=== PATIENT | female | born 1980 | race African-American/Black ===

== ENCOUNTER → 2017-03-09 | Outpatient (CLI) | payer OTHER ==
[2017-03-09 16:30] LABS: FREE T3 4.12 pg/mL (2.77-5.27)
[2017-03-09 16:43] LABS: THYROID STIMULATING HORMONE 1.63 uIU/mL (0.47-4.68)
[2017-03-09 17:20] LABS: FOLATE > 20.00 ng/mL (>2.76)
== END ==
LOC: OD 14:33
PROVIDERS: ATTEND Specialist
DX: G31.84 Mild cognitive impairment of uncertain or unknown etiology (principal)
CPT/HCPCS: 36415; 82607; 82746; 83036; 84439; 84443; 84481; 86038; 86592

== ENCOUNTER → 2017-03-10 | Outpatient (CLI) | payer OTHER | LOC: RAD 18:48 | PROVIDERS: ATTEND Specialist | DX: G31.84 Mild cognitive impairment of uncertain or unknown etiology (principal) | CPT/HCPCS: 70553; 72156; A9577 ==

== ENCOUNTER 2017-06-07 08:03 | Day surgery (SDC) | payer OTHER ==
[2017-06-07 08:36] LABS: PARTIAL THROMBOPLASTIN TIME 28.3 SEC (23.5-35.8); PROTHROMBIN TIME 11.7 SEC (11.4-15.4)
--- NOTE | 2017-06-07 11:03 | RADIOLOGY REPORT (SQ) ---
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 TECHNIQUE: Fluoroscopic guided lumbar puncture. LIMITATIONS: None. PROCEDURE: After written consent and assessment were obtained, the patient was brought into the fluo roscopy room and placed prone on the table. The patient's lower back was prepped in a sterile fashio n and an entry site was selected under live fluoroscopic guidance. The entry site was anesthetized wi th 4.5 mL of 1% lidocaine. A 20 gauge spinal needle was advanced through the skin and into the thecal sac at the left paracentral L2-3 level. After approximately 9 ml was drained, the needle was removed and a sterile bandage was placed of the site. Specimens were sent to the lab for testing. A fluoro scopic spot image was saved to PACS confirming level access. FINDINGS: Clear CSF Opening pressure 14 cm of water. Specimens of cerebrospinal fluid were sent the lab for testing. IMPRESSION: Lumbar puncture under fluoroscopy. No immediate complication. COMMENT: Patient medication list reviewed: Yes- Quality ID# [id number]:Eligible professional attests to doc umenting in the medical record they obtained, updated, or reviewed the patient's current medications. . Quality ID 145: Final reports for procedures using fluoroscopy that document radiation exposure loreto alessandro, or exposure time and number of fluorographic images (if radiation exposure indices are not avail able) TECHNICAL DOCUMENTATION: JOB ID: [id number] [employer]- All Rights Reserved
[2017-06-07 12:08] LABS: GLUCOSE,CSF 61 mg/dL (40-70)
[2017-06-07 13:01] VITALS: BP 109/64
[2017-06-08 08:22] LABS: VITAMIN D 25-HYDROXY 16.4 ng/mL (30.0-100.0)
[2017-06-08 14:03] LABS: ANTI-SS-B AB SJOGREN'S 0.6 AI (0.0-0.9)
[2017-06-08 16:39] LABS: ALBUMIN 3 3.7 g/dL (2.9-4.4); ALPHA-1-GLOBULIN 0.2 g/dL (0.0-0.4); ALPHA-2-GLOBULIN 3 0.6 g/dL (0.4-1.0); BETA GLOBULIN 1.1 g/dL (0.7-1.3); GLOBULIN TTL 3.2 g/dL (2.2-3.9); IMMUNOGLOBULIN A 154 mg/dL (87-352); IMMUNOGLOBULIN G 1407 mg/dL (700-1600); IMMUNOGLOBULIN M 38 mg/dL (26-217); MONOCLONAL-SPIKE Not Observed g/dL (Not Observed); PROTEIN TOTAL SERUM 6.9 g/dL (6.0-8.5)
[2017-06-12 19:36] LABS: LYME P18 AB IGG CSF Present (.); LYME P23 AB IGG CSF Absent (.); LYME P23 AB IGM CSF Absent (.); LYME P28 AB IGG CSF Present (.); LYME P30 AB IGG CSF Present (.); LYME P39 AB IGG CSF Absent (.); LYME P39 AB IGM CSF Absent (.); LYME P41 AB IGG CSF Absent (.); LYME P41 AB IGM CSF Absent (.); LYME P45 AB IGG CSF Present (.); LYME P58 AB IGG CSF Present (.); LYME P66 AB IGG CSF Present (.); LYME P93 AB IGG CSF Present (.)
[2017-06-13 07:08] LABS: LYME IGG WB CSF INTERP Negative (.); LYME IGM WB CSF INTERP Negative (.)
== END 2017-06-07 12:50 | disposition home or self-care (01) ==
LOC: RAD 08:03
PROVIDERS: ATTEND Psychiatry & Neurology Neurology
PROC: 009U3ZX Drainage of Spinal Canal, Percutaneous Approach, Diagnostic (ICD-10-PCS; principal; 2017-06-07)
DX: G37.9 Demyelinating disease of central nervous system, unspecified (principal); R51 Headache; R42 Dizziness and giddiness; Z88.0 Allergy status to penicillin
CPT/HCPCS: 36415; 62270; 77003; 82306; 82945; 83916; 84157; 85610; 85730; 86235; 86320; 86617

== ENCOUNTER 2017-06-09 01:53 | Emergency (ER) | payer OTHER ==
--- NOTE | 2017-06-09 02:49 | ER Document Report ---
ED Headache <STORMY HUMPHREY - Last Filed: 06/09/17 03:52> - General Mode of Arrival: Ambulatory Information source: Patient, Relative - spouse TRAVEL OUTSIDE OF THE [place] IN LAST 30 DAYS: No - HPI Similar symptoms previously: No Recently seen / treated by doctor: Yes <MATTEO PÉREZ - Last Filed: 06/09/17 04:54> - General Chief Complaint: Headache Stated Complaint: PRESSURE ON HEAD Time Seen by Provider: 06/09/17 02:44 - HPI Notes: Patient is a 36 year old female presenting to the emergency department for headache. Patient describes her headache as pressure and states it is exacerbated when she is in suspine position and has been progressing. Patient has had multiple MRIs completed in the past. Patient denies any headache pain but only pressure at the back of her head. Patient had a lumbar puncture on Monday. Patient also has numbness in the back of her left leg. Patient states she cannot take any caffeine because it induces her migraines. (MATTEO PÉREZ) - Related Data Allergies/Adverse Reactions: prochlorperazine edisylate [From Compazine] Allergy (Verified 06/09/17 03:06) can't open mouth/eyes fixated prochlorperazine maleate [From Compazine] Allergy (Verified 06/09/17 03:06) can't open mouth/eyes fixated promethazine HCl [From Phenergan] Allergy (Verified 06/09/17 03:06) can't open mouth/ eyes won't move Past Medical History - General Information source: Patient - Social History Smoking Status: Never Smoker Cigarette use (# per day): No Chew tobacco use (# tins/day): No Smoking Education Provided: No Frequency of alcohol use: None Drug Abuse: None Family History: DM, Hypertension Patient has suicidal ideation: No Patient has homicidal ideation: No Neurological Medical History: Reports: Hx Migraine GI Medical History: Reports: Hx Gastroesophageal Reflux Disease Musculoskeltal Medical History: Reports Hx Arthritis Surgical Hx: Negative - Immunizations Hx Diphtheria, Pertussis, Tetanus Vaccination: No <MATTEO PÉREZ - Last Filed: 06/09/17 04:54> Review of Systems - Review of Systems Constitutional: No symptoms reported EENT: No symptoms reported Cardiovascular: No symptoms reported Respiratory: No symptoms reported Gastrointestinal: No symptoms reported Genitourinary: No symptoms reported Female Genitourinary: No symptoms reported Musculoskeletal: No symptoms reported Skin: No symptoms reported Hematologic/Lymphatic: No symptoms reported Neurological/Psychological: See HPI, Headaches -: Yes All other systems reviewed and negative <MATTEO PÉREZ - Last Filed: 06/09/17 04:54> Physical Exam <STORMY HUMPHREY - Last Filed: 06/09/17 03:52> - Vital signs Interpretation: Normal <MATTEO PÉREZ - Last Filed: 06/09/17 04:54> - Vital signs Vitals: Temp Pulse Resp BP Pulse Ox 98.6 F 85 16 125/71 99 06/09/17 01:56 06/09/17 01:56 06/09/17 01:56 06/09/17 01:56 06/09/17 01:56 - Notes Notes: GENERAL: Alert, interacts well. No acute distress. HEAD: Normocephalic, atraumatic. EYES: Appear normal. Pupils equal, round, and reactive to light. ENT: Moist mucus membranes, tongue midline. NECK: Full range of motion. Supple. Trachea midline. LUNGS: Clear to auscultation bilaterally, no wheezes, rales, or rhonchi. No respiratory distress. HEART: Regular rate and rhythm. No murmurs, gallops, or rubs. ABDOMEN: Soft, non-tender. Non-distended. Normal bowel sounds. EXTREMITIES: Moves all 4 extremities spontaneously. Normal strength. No edema. NEUROLOGICAL: Alert and oriented x3. Normal speech. No focal neurological deficits. GSC 15. PSYCH: Normal affect, normal mood. SKIN: Warm, dry, normal turgor. No rashes or lesions noted. (MATTEO PÉREZ) Course - Diagnostic Test Radiology reviewed: Image reviewed, Reports reviewed - CT scan of the brain does not show acute changes. There is no change in the location of the cerebellar tonsils compared to previous CT scans and MRIs. <STORMY HUMPHREY - Last Filed: 06/09/17 03:52> Discharge <STORMY HUMPHREY - Last Filed: 06/09/17 03:52> <MATTEO PÉREZ - Last Filed: 06/09/17 04:54> - Discharge Clinical Impression: Post lumbar puncture headache Condition: Stable Disposition: HOME, SELF-CARE Additional Instructions: This CT scan does not show an acute change in the appearance of the cerebellar tonsils or any other abnormality. Pressure in the back of your head is probably related to the lumbar puncture. You should rest and sleep in a semi-upright position. Drink plenty of fluids. Take Tylenol for head discomfort if needed. Follow-up with your neurologist if not improving. RETURN TO THE EMERGENCY ROOM IF ANY NEW OR WORSENING SYMPTOMS. Scribe Attestation: 06/09/17 03:52 I personally performed the services described in the documentation, reviewed and edited the documentation which was dictated to the scribe in my presence, and it accurately records my words and actions. (STORMY HUMPHREY) Scribe Documentation - Scribe Written by Chago:: Chago Hull 06/09/17 4:08 acting as scribe for :: Artemio <MATTEO PÉREZ - Last Filed: 06/09/17 04:54>
--- NOTE | 2017-06-09 03:33 | RADIOLOGY REPORT (SQ) ---
EXAM DESCRIPTION: CT HEAD WITHOUT COMPLETED DATE/TIME: 06/09/2017 3:18 am REASON FOR STUDY: LP 06/07/17, pressure in occipital area COMPARISON: 09/11/2012. MRI, 03/10/2017. TECHNIQUE: Axial images acquired through the brain without intravenous contrast. Images reviewed wi th bone, brain and subdural windows. Images stored on PACS. All CT scanners at this facility use dose modulation, iterative reconstruction, and/or weight based d osing when appropriate to reduce radiation dose to as low as reasonably achievable (ALARA). [facility]: Dose Right [facility]: CareDose [facility]: Dose Right [facility]: Teradose 4D [facility]: Smart [place] RADIATION DOSE: Up-to-date CT equipment and radiation dose reduction techniques were employed. CTDIv ol: 64.6 mGy. DLP: 1163 mGy-cm. mGy. LIMITATIONS: None. FINDINGS: VENTRICLES: Normal size and contour. CEREBRUM: No masses. No hemorrhage. No midline shift. Normal colon/white matter differentiation. N o evidence for acute infarction. CEREBELLUM: No masses. No hemorrhage. No alteration of density. No evidence for acute infarction. EXTRAAXIAL SPACES: No fluid collections. No masses. ORBITS AND GLOBE: No intra- or extraconal masses. Normal contour of globe without masses. CALVARIUM: No fracture. PARANASAL SINUSES: No fluid or mucosal thickening. SOFT TISSUES: No mass or hematoma. OTHER: No other significant finding. IMPRESSION: NORMAL BRAIN CT WITHOUT CONTRAST. TECHNICAL DOCUMENTATION: JOB ID: [id number] Quality ID # [id number]: Final reports with documentation of one or more dose reduction techniques (e.g., Au tomated exposure control, adjustment of the mA and/or kV according to patient size, use of iterative reconstruction technique) 2010 [employer]- All Rights Reserved
[2017-06-09 04:00] VITALS: BP 114/59
== END 2017-06-09 04:00 | disposition home or self-care (01) ==
LOC: ER 01:53
DX: G97.1 Other reaction to spinal and lumbar puncture (principal); R20.0 Anesthesia of skin; Y84.4 Aspiration of fluid as the cause of abnormal reaction of the patient, or of later complication, without mention of misadventure at the time of the procedure
CPT/HCPCS: 70450; 99284

== ENCOUNTER 2020-01-12 14:09 | Emergency (ER) | payer OTHER ==
--- NOTE | 2020-01-12 14:31 | ER Document Report ---
ED Medical Screen (RME) - General Chief Complaint: Dizziness Stated Complaint: DIZZINESS Time Seen by Provider: 01/12/20 14:29 Cannot obtain history due to: Other - This is a 39-year-old female presented to the emergency room today stating that she had had some dizziness intermittent episodes on Monday evening Monday and this morning. Does have MS and feels that these responses are neurological and Melita she said she does have some lesions on the brain. TRAVEL OUTSIDE OF THE [place] IN LAST 30 DAYS: No - Related Data Allergies/Adverse Reactions: prochlorperazine edisylate [From Compazine] Allergy (Verified 01/12/20 14:26) can't open mouth/eyes fixated prochlorperazine maleate [From Compazine] Allergy (Verified 01/12/20 14:26) can't open mouth/eyes fixated promethazine HCl [From Phenergan] Allergy (Verified 01/12/20 14:26) can't open mouth/ eyes won't move Past Medical History - Past Medical History Cardiac Medical History: Denies: Hx Coronary Artery Disease, Hx Heart Attack, Hx Hypertension Pulmonary Medical History: Denies: Hx Asthma, Hx Bronchitis, Hx COPD, Hx Pneumonia Neurological Medical History: Reports: Hx Migraine. Denies: Hx Cerebrovascular Accident, Hx Seizures Endocrine Medical History: Denies: Hx Graves' Disease, Hx Hyperthyroidism, Hx Hypothyroidism Renal/ Medical History: Denies: Hx Peritoneal Dialysis GI Medical History: Reports: Hx Gastroesophageal Reflux Disease, Hx Hiatal Hernia Musculoskeltal Medical History: Reports Hx Arthritis Past Surgical History: Reports: Hx Appendectomy, Hx Tubal Ligation - Immunizations Hx Diphtheria, Pertussis, Tetanus Vaccination: No Physical Exam - Vital signs Vitals: Temp Pulse Resp BP Pulse Ox 98.7 F 117 H 16 134/86 H 100 01/12/20 14:29 01/12/20 14:29 01/12/20 14:29 01/12/20 14:29 01/12/20 14:29 Interpretation: Normal - General General appearance: Appears well, Alert - HEENT Head: Normocephalic, Atraumatic Eyes: Normal Pupils: PERRL - Respiratory Respiratory status: No respiratory distress Chest status: Nontender Breath sounds: Normal Chest palpation: Normal - Cardiovascular Rhythm: Regular Heart sounds: Normal auscultation Murmur: No - Abdominal Inspection: Normal Distension: No distension Bowel sounds: Normal Tenderness: Nontender Organomegaly: No organomegaly - Back Back: Normal, Nontender - Extremities General upper extremity: Normal inspection, Nontender, Normal color, Normal ROM, Normal temperature General lower extremity: Normal inspection, Nontender, Normal color, Normal ROM, Normal temperature, Normal weight bearing. No: Wagner's sign - Neurological Neuro grossly intact: Yes Cognition: Normal Orientation: AAOx4 [place] Coma Scale Eye Opening: Spontaneous [place] Coma Scale Verbal: Oriented [place] Coma Scale Motor: Obeys Commands Osval[place] Coma Scale Total: 15 Speech: Normal Motor strength normal: LUE, RUE, LLE, RLE Sensory: Normal - Psychological Associated symptoms: Normal affect, Normal mood - Skin Skin Temperature: Warm Skin Moisture: Dry Skin Color: Normal Course - Vital Signs Vital signs: Temp Pulse Resp BP Pulse Ox 98.7 F 117 H 16 134/86 H 100 01/12/20 14:29 01/12/20 14:29 01/12/20 14:29 01/12/20 14:29 01/12/20 14:29
--- NOTE | 2020-01-12 14:57 | ER Document Report ---
ED General - General Chief Complaint: Dizziness Stated Complaint: DIZZINESS Time Seen by Provider: 01/12/20 14:29 Mode of Arrival: Ambulatory Information source: Patient Notes: This is a 39-year-old female presented to the emergency room today stating that she had had some dizziness intermittent episodes on Monday evening Monday and this morning. Does have MS and feels that these responses are neurological and Melita she said she does have some lesions on the brain. TRAVEL OUTSIDE OF THE [place] IN LAST 30 DAYS: No 39-year-old female arrives with chief complaint of 1 week history of dizziness and mild weakness. She has a history of MS since diagnosis 31 July 2017. She takesOcrevus (ocrelizumab)-please note 1 of the side effects from this is dizzin ess. Patient thought she may have been having some sinus infection from pollen this time a year and has been taking her Claritin for this. She has a history of some ear problems in the past. Right ear was within normal limits but left TM was a bulging abnormal appearing tympanic membrane. Patient denies any muscular pain sensation loss to her fingers or feet or movement problems of her neck chest abdomen back or taste or vision problems. TRAVEL OUTSIDE OF THE [place] IN LAST 30 DAYS: No - Related Data Allergies/Adverse Reactions: prochlorperazine edisylate [From Compazine] Allergy (Verified 01/12/20 14:26) can't open mouth/eyes fixated prochlorperazine maleate [From Compazine] Allergy (Verified 01/12/20 14:26) can't open mouth/eyes fixated promethazine HCl [From Phenergan] Allergy (Verified 01/12/20 14:26) can't open mouth/ eyes won't move Past Medical History - Social History Smoking Status: Never Smoker Chew tobacco use (# tins/day): No Frequency of alcohol use: None Drug Abuse: None Family History: DM, Hypertension Patient has suicidal ideation: No Patient has homicidal ideation: No - Past Medical History Cardiac Medical History: Denies: Hx Coronary Artery Disease, Hx Heart Attack, Hx Hypertension Pulmonary Medical History: Denies: Hx Asthma, Hx Bronchitis, Hx COPD, Hx Pneumonia Neurological Medical History: Reports: Hx Migraine. Denies: Hx Cerebrovascular Accident, Hx Seizures Endocrine Medical History: Denies: Hx Graves' Disease, Hx Hyperthyroidism, Hx Hypothyroidism Renal/ Medical History: Denies: Hx Peritoneal Dialysis GI Medical History: Reports: Hx Gastroesophageal Reflux Disease, Hx Hiatal Hernia Musculoskeletal Medical History: Reports Hx Arthritis Past Surgical History: Reports: Hx Appendectomy, Hx Tubal Ligation - Immunizations Hx Diphtheria, Pertussis, Tetanus Vaccination: No Review of Systems - Review of Systems Constitutional: See HPI Physical Exam - Vital signs Vitals: Temp Pulse Resp BP Pulse Ox 98.7 F 117 H 16 134/86 H 100 01/12/20 14:29 01/12/20 14:29 01/12/20 14:29 01/12/20 14:29 01/12/20 14:29 - General General appearance: Alert - HEENT Head: Normocephalic Eyes: Normal Conjunctiva: Normal Cornea: Normal Extraocular movements intact: Yes Eyelashes: Normal Pupils: PERRL Ears: Normal External canal: Normal Tympanic membrane: Loss of landmarks - to left TM with wnl right TM Sinus: Frontal, Mastoid, Tenderness Nasal: Normal Mouth/Lips: Normal Mucous membranes: Normal Pharynx: Normal Neck: Normal - Respiratory Respiratory status: No respiratory distress Chest status: Nontender Breath sounds: Normal Chest palpation: Normal - Cardiovascular Rhythm: Tachycardia Heart sounds: Normal auscultation Murmur: No Friction rub: No Aftab's crunch: No - Abdominal Inspection: Normal Distension: No distension Bowel sounds: Normal Tenderness: Nontender Organomegaly: No organomegaly - Back Back: Normal - Extremities General upper extremity: Normal inspection General lower extremity: Normal inspection - Neurological Neuro grossly intact: Yes Cognition: Normal Orientation: AAOx4 [place] Coma Scale Eye Opening: Spontaneous [place] Coma Scale Verbal: Oriented [place] Coma Scale Motor: Obeys Commands [place] Coma Scale Total: 15 Speech: Normal Cranial nerves: Normal Cerebellar coordination: Normal Motor strength normal: LUE, RUE, LLE, RLE - Psychological Associated symptoms: Normal affect - Skin Skin Temperature: Warm Skin Moisture: Dry Course - Vital Signs Vital signs: Temp Pulse Resp BP Pulse Ox 98.7 F 117 H 16 134/86 H 100 01/12/20 14:29 01/12/20 14:29 01/12/20 14:29 01/12/20 14:29 01/12/20 14:29 - Laboratory Result Diagrams: 01/12/20 14:45 01/12/20 14:45 Laboratory results interpreted by me: 01/12/20 01/12/20 14:45 14:45 RDW 14.2 H Carbon Dioxide 31 H Critical Care Note - Critical Care Note Total time excluding time spent on procedures (mins): 90 Comments: I discussed findings with patient Discharge - Discharge Clinical Impression: Dizziness, Left otitis media with effusion, Multiple sclerosis, Tachycardia Condition: Good Disposition: HOME, SELF-CARE Instructions: Dizziness ([facility]), Meclizine ([facility]) Additional Instructions: Follow-up with personal doctor this week return to ER as needed encourage fluids avoid lifting bending or twisting and off work as directed Prescriptions: Meclizine HCl [Antivert 25 mg Tablet] 25 mg PO TID PRN #21 tablet PRN Reason: Dexamethasone [Decadron 4 Mg Tablet] 4 mg PO BID #10 tablet Levofloxacin [Levaquin 500 mg Tablet] 500 mg PO DAILY #7 tablet Forms: Return to Work
[2020-01-12 15:00] LABS: ABSOLUTE EOSINOPHILS # (AUTO) 0.1 10^3/uL (0.0-0.6); ABSOLUTE LYMPHOCYTES (AUTO) 1.8 10^3/uL (0.5-4.7); ABSOLUTE MONOCYTES (AUTO) 0.5 10^3/uL (0.1-1.4); ABSOLUTE NEUT (AUTO) 4.5 10^3/uL (1.7-8.2); BASOPHILS % (AUTO) 0.7 % (0-2); EOSINOPHILS % (AUTO) 1.3 % (0-6); HEMATOCRIT 39.5 % (36.0-47.0); HEMOGLOBIN 13.2 g/dL (12.0-15.5); LYMPHOCYTES % (AUTO) 25.7 % (13-45); MEAN CORPUSCULAR HGB CONC 33.4 g/dL (32.0-36.0); MEAN CORPUSCULAR VOLUME 81 fl (80-97); MONOCYTES % (AUTO) 6.5 % (3-13); PLATELET COUNT 293 10^3/uL (150-450); RED BLOOD COUNT 4.89 10^6/uL (3.72-5.28); RED CELL DISTRIBUTION WIDTH 14.2 % (11.5-14.0); SEGMENTED NEUTROPHILS % (AUTO) 65.8 % (42-78); TOTAL CELLS COUNTED % (AUTO) 100 %; WHITE BLOOD COUNT 6.9 10^3/uL (4.0-10.5)
--- NOTE | 2020-01-12 15:16 | RADIOLOGY REPORT (SQ) ---
EXAM DESCRIPTION: CT HEAD WITHOUT COMPLETED DATE/TIME: 01/12/2020 3:03 pm REASON FOR STUDY: dizzy COMPARISON: 06/09/2017 TECHNIQUE: Axial images acquired through the brain without intravenous contrast. Images reviewed wit h bone, brain and subdural windows. Images stored on PACS. All CT scanners at this facility use dose modulation, iterative reconstruction, and/or weight based d osing when appropriate to reduce radiation dose to as low as reasonably achievable (ALARA). [facility]: Dose Right [facility]: CareDose [facility]: Dose Right [facility]: Teradose 4D [facility]: Smart [employer] RADIATION DOSE: CT Rad equipment meets quality standard of care and radiation dose reduction techniq ues were employed. CTDIvol: 53.2 mGy. DLP: 884 mGy-cm.. LIMITATIONS: None. FINDINGS: VENTRICLES: Normal size and contour. CEREBRUM: No masses. No hemorrhage. No midline shift. Age appropriate white matter. No evidence for a cute infarction. CEREBELLUM: No masses. No hemorrhage. No alteration of density. No evidence for acute infarction. EXTRA-AXIAL SPACES: No fluid collections. ORBITS AND GLOBE: No intra- or extraconal masses. Normal contour of globe without masses. CALVARIUM: No fracture. PARANASAL SINUSES: No fluid or mucosal thickening. SOFT TISSUES: No mass or hematoma. OTHER: No other significant finding. IMPRESSION: NO ACUTE INTRACRANIAL FINDINGS. EVIDENCE OF ACUTE STROKE: NO. TECHNICAL DOCUMENTATION: JOB ID: [id number] Quality ID # [id number]: Final reports with documentation of one or more dose reduction techniques (e.g., Au tomated exposure control, adjustment of the mA and/or kV according to patient size, use of iterative reconstruction technique) 2010 [employer]- All Rights Reserved Reading location - IP/workstation name: [employer]
[2020-01-12 15:18] LABS: APPEARANCE,URINE CLEAR; BILIRUBIN,URINE NEGATIVE (NEGATIVE); COLOR,URINE STRAW; GLUCOSE, URINE NEGATIVE (NEGATIVE); KETONES,URINE NEGATIVE (NEGATIVE); LEUKOCYTE ESTERASE,URINE NEGATIVE (NEGATIVE); NITRITE,URINE NEGATIVE (NEGATIVE); PROTEIN,URINE NEGATIVE (NEGATIVE); URINE SPECIFIC GRAVITY 1.002; UROBILINOGEN,URINE NEGATIVE mg/dL (<2.0)
[2020-01-12 15:19] LABS: ALBUMIN 4.6 g/dL (3.5-5.0); ALKALINE PHOSPHATASE 89 U/L (38-126); ANION GAP 8 (5-19); ASPARTATE AMINO TRANSFERASE 19 U/L (14-36); BILIRUBIN,DIRECT 0.1 mg/dL (0.0-0.4); BILIRUBIN,TOTAL 0.6 mg/dL (0.2-1.3); BLOOD UREA NITROGEN 7 mg/dL (7-20); CALCIUM 9.6 mg/dL (8.4-10.2); CARBON DIOXIDE 31 mmol/L (22-30); CHLORIDE 100 mmol/L (98-107); GLUCOSE 80 mg/dL (75-110); POTASSIUM 3.9 mmol/L (3.6-5.0); TOTAL PROTEIN 8.1 g/dL (6.3-8.2)
[2020-01-12] MEDS ORDERED: DEXAMETHASONE SOD PHOS INJ 10 MG/1 ML VIAL IV ONE (15:45)
[2020-01-12] MEDS ORDERED: MECLIZINE HCL 25 MG TABLET PO ONE (15:45)
[2020-01-12 16:00] LABS: URINE AMPHETAMINES SCREEN NEGATIVE; URINE BARBITURATES SCREEN NEGATIVE; URINE BENZODIAZEPINES SCREEN NEGATIVE; URINE COCAINE SCREEN NEGATIVE; URINE MARIJUANA (THC) SCREEN NEGATIVE; URINE METHADONE SCREEN NEGATIVE; URINE PHENCYCLIDINE SCREEN NEGATIVE
[2020-01-12] MEDS ORDERED: DEXAMETHASONE SOD PHOS INJ 10 MG/1 ML VIAL IM ONE (16:53)
[2020-01-12 18:24] VITALS: BP 120/62
--- NOTE | 2020-01-13 00:43 | EKG REPORT ---
SEVERITY:- NORMAL ECG - SINUS RHYTHM : Confirmed by: Darlyn Levin 13-Jan-2020 00:41:58
== END 2020-01-12 18:10 | disposition home or self-care (01) ==
LOC: ER 14:09
DX: R42 Dizziness and giddiness (principal); H65.92 Unspecified nonsuppurative otitis media, left ear; R00.0 Tachycardia, unspecified; G35 Multiple sclerosis; R53.1 Weakness
CPT/HCPCS: 93005; 99291; 99292; 96372; 36415; 85025; 80053; 81001; 80307; 70450; 93010; J1100